=== PATIENT | male | born 1950 | race Caucasian/White ===

== ENCOUNTER 2024-01-01 14:08 | Emergency (ER) | payer MEDICARE, OTHER ==
[2024-01-01 15:05] VITALS: RESP 18; TEMP 98.1
--- NOTE | 2024-01-01 15:08 | ED ---
Recheck HPI - General Source: patient, family, RN notes reviewed Mode of arrival: ambulatory Limitations: no limitations <Alma Rosa Lema - Last Filed: 01/01/24 15:07> <Faiza Hardy - Last Filed: 01/09/24 07:01> - General Chief Complaint: Recheck/Abnormal Lab/Rx Stated Complaint: Abn labs-sent by PCP Time Seen by Provider: 01/01/24 15:07 - History of Present Illness Initial Comments: Quick note: 73-year-old male presented to the ER with a chief complaint of abnormal labs. Patient reports on Thursday she had a syncopal episode and hit his head. Patient was seen in the ER and had a full workup which was negative. Patient states he followed up with his primary care physician who ordered an MRI to be thorough. MRI was completed today and was found to have an odontoid abnormality. PCP sent patient in for further evaluation. Patient does complain that he has been feeling a popping sensation in his neck. (Alma Rosa Lema) 73-year-old male presents emergency department with abnormal MRI. Patient had a passing out episode on Thursday. He followed up with his primary care doctor who ordered an MRI. MRI was completed today in the outpatient setting. He was found to have an abnormality and was sent to the hospital. Patient does have a popping sensation in his neck however this is chronic. States that he has a chiropractor works on his neck. He denies any worsening neck pain. No numbness, tingling or weakness in his extremities. No other alleviating, precipitating or modifying factors (Faiza Hardy) - Related Data Allergies Allergy/AdvReac Type Severity Reaction Status Date / Time No Known Allergies Allergy Verified 01/01/24 14:23 Review of Systems ROS Other: All systems not noted in ROS Statement are negative. <Alma Rosa Lema - Last Filed: 01/01/24 15:07> ROS Other: All systems not noted in ROS Statement are negative. <Faiza Hardy - Last Filed: 01/09/24 07:01> ROS Statement: Those systems with pertinent positive or pertinent negative responses have been documented in the HPI. Past Medical History Smoking Status: Never smoker Past Alcohol Use History: None Reported Past Drug Use History: None Reported <Alma Rosa Lema - Last Filed: 01/01/24 15:07> General Exam Limitations: no limitations <Alma Rosa Lema - Last Filed: 01/01/24 15:07> General appearance: alert, in no apparent distress Head exam: Present: atraumatic, normocephalic, normal inspection Eye exam: Present: normal appearance, PERRL, EOMI. Absent: scleral icterus, conjunctival injection, periorbital swelling ENT exam: Present: normal exam, mucous membranes moist Neck exam: Present: normal inspection. Absent: tenderness, meningismus, lymphadenopathy Respiratory exam: Present: normal lung sounds bilaterally. Absent: respiratory distress, wheezes, rales, rhonchi, stridor Cardiovascular Exam: Present: regular rate, normal rhythm, normal heart sounds. Absent: systolic murmur, diastolic murmur, rubs, gallop, clicks GI/Abdominal exam: Present: soft, normal bowel sounds. Absent: distended, tenderness, guarding, rebound, rigid Extremities exam: Present: normal inspection, full ROM, normal capillary refill. Absent: tenderness, pedal edema, joint swelling, calf tenderness Back exam: Present: normal inspection Neurological exam: Present: alert, oriented X3, CN II-XII intact Psychiatric exam: Present: normal affect, normal mood Skin exam: Present: warm, dry, intact, normal color. Absent: rash <Faiza Hardy - Last Filed: 01/09/24 07:01> - General Exam Comments Initial Comments: Visual Physical Exam Vital signs reviewed General: Well-appearing, nontoxic, no acute distress. Head: Normocephalic, atraumatic Eyes: PERRLA, EOMI ENT: Airway patent Chest: Nonlabored breathing Skin: No visual rash, normal skin tone, contusion under left eye Neuro: Alert and oriented 3 Musculoskeletal: No gross abnormalities (Alma Rosa Lema) Course Vital Signs 01/01/24 01/01/24 14:20 17:44 Temperature 98.1 F Pulse Rate 73 64 Respiratory 18 18 Rate Blood Pressure 123/72 126/74 O2 Sat by Pulse 98 98 Oximetry Medical Decision Making <Alma Rosa Lema - Last Filed: 01/01/24 15:07> <Faiza Hardy - Last Filed: 01/09/24 07:01> - Medical Decision Making I performed the quick note portion of this chart. Electronically signed by Alma Rosa Lema PA-C (Alma Rosa Lema) Was pt. sent in by a medical professional or institution ([facility], [employer], urgent care, hospital, or detention...) When possible be specific @ -Patient was sent in from outpatient MRI for an abnormal lab Did you speak to anyone other than the patient for history (EMS, parent, family, police, friend...)? What history was obtained from this source @ -I talked to his for history Did you review nursing and triage notes (agree or disagree)? Why? @ -I reviewed and agree with nursing and triage notes Were old charts reviewed (outside hosp., previous admission, EMS record, old EKG, old radiological studies, urgent care reports/EKG's, detention records)? Report findings @ -I reviewed the MRI that was performed today on the patient Differential Diagnosis (chest pain, altered mental status, abdominal pain women, abdominal pain men, vaginal bleeding, weakness, fever, dyspnea, syncope, headache, dizziness, GI bleed, back pain, seizure, CVA, palpatations, mental health, musculoskeletal)? @ -Differential Back Pain: Strain, zoster, cauda equina syndrome, epidural abscess, vertebral osteomyelitis, discitis, fracture, subluxation, disc herniation, DJD, spinal stenosis, dissection, AAA, pancreatitis, peptic ulcer disease, pyelonephritis, kidney stone, this is not meant to be an all-inclusive list. EKG interpreted by me (3pts min.). @ -Not done X-rays interpreted by me (1pt min.). @ -Yes and demonstrates no fracture CT interpreted by me (1pt min.). @ -None done U/S interpreted by me (1pt. min.). @ -None done What testing was considered but not performed or refused? (CT, X-rays, U/S, labs)? Why? @ -None What meds were considered but not given or refused? Why? @ -None Did you discuss the management of the patient with other professionals (professionals i.e. L[facility] Werner, [employer], lab, RT, psych nurse, social services assistant, systems analyst, teacher, public information officer, case supervisor)? Give summary @ -No Was smoking cessation discussed for >3mins.? @ -No Was critical care preformed (if so, how long)? @ -No Were there social determinants of health that impacted care today? How? (Homele ssness, low income, unemployed, alcoholism, drug addiction, transportation, low edu. Level, literacy, decrease access to med. care, half-way, rehab)? @ -No Was there de-escalation of care discussed even if they declined (Discuss DNR or withdrawal of care, Hospice)? DNR status @ -No What co-morbidities impacted this encounter? (DM, HTN, Smoking, COPD, CAD, Cancer, CVA, ARF, Chemo, Hep., AIDS, mental health diagnosis, sleep apnea, morbid obesity)? @ -None Was patient admitted / discharged? Hospital course, mention meds given and route, prescriptions, significant lab abnormalities, going to OR and other pertinent info. @ -Upon arrival patient seen and evaluated in room 29. Thorough history and physical exam was performed. X-rays were completed which demonstrate no fracture. This is discussed with the patient. Patient will be discharged home. Instructed to follow-up with his primary care doctor for further workup of his passing out episode. Undiagnosed new problem with uncertain prognosis? @ -No Drug Therapy requiring intensive monitoring for toxicity (Heparin, Nitro, Insulin, Cardizem)? @ -No Were any procedures done? @ -No Diagnosis/symptom? @ -Acute syncope, chronic neck pain, evaluation for dens fracture Acute, or Chronic, or Acute on Chronic? @ -Acute Uncomplicated (without systemic symptoms) or Complicated (systemic symptoms)? @ -complicated Side effects of treatment? @ -No Exacerbation, Progression, or Severe Exacerbation? @ -No Poses a threat to life or bodily function? How? (Chest pain, USA, MS, pneumonia, PE, COPD, DKA, ARF, appy, cholecystitis, CVA, Diverticulitis, Homicidal, Suicidal, threat to staff... and all critical care pts) @ -No (Faiza Hardy) Disposition <Alma Rosa Lema - Last Filed: 01/01/24 15:07> Is patient prescribed a controlled substance at d/c from ED?: No Time of Disposition: 17:33 <Faiza Hardy - Last Filed: 01/09/24 07:01> Clinical Impression: Abnormal MRI Disposition: HOME SELF-CARE Condition: Stable Instructions (If sedation given, give patient instructions): Normal Exam (ED) Additional Instructions: Please follow-up with Dr. Crespo. I recommend echo of your heart, carotid Dopplers and a Holter monitor. Return for any new or worsening symptoms Please follow-up with the recommended M doctors for any type of manipulation Have a repeat MRI of your cervical spine completed in 6 months to reevaluate that area of abnormality that they had seen today Referrals: Della Crespo MD [Primary Care Provider] - 1-2 days Tejas Rice DO [REFERRING] - 1-2 days Monika Lucero DO [REFERRING] - 1-2 days Alona Licona DO [REFERRING] - 1-2 days
--- NOTE | 2024-01-01 16:19 | XR ---
EXAMINATION TYPE: XR cervical spine 5 views comp DATE OF EXAM: 01/01/2024 COMPARISON: None HISTORY: 73-year-old male abnormal MRI, odontoid FINDINGS: Degenerative view shows no discrete dens fracture. No predental space widening or prevertebral soft t issue swelling. Suspect some interbody ankylosis across C2-C3. Moderate to severe dissection plate de generative change C5-T1 levels with loss of disc height and prominent anterior endplate spondylosis. Reversal of the normal cervical lordosis. Multilevel hypertrophic facet and uncovertebral joint arthr opathy. On the left, changes result in moderate to severe bony neural foraminal narrowing at C3-C4 and mild a t C6-C7. On the right, changes result in moderate bony neuroforaminal narrowing at C3-C4 and severe a t C4-C5. Alignment is maintained. IMPRESSION: 1. The odontoid view shows no dense fracture. MRI finding may correspond to sequela of old trauma or previous gouty tophus or old rheumatoid pannus. Clinically correlate. If indicated, consider a six-mo nth follow-up MRI cervical spine to reassess this area. 2. Moderate to advanced spondylotic change especially mid to low cervical spine. Reversal of normal c ervical lordosis could be positional or due to muscle spasm.
[2024-01-01 18:15] VITALS: BP 126/74; PULSE 64
== END 2024-01-01 17:46 | disposition home or self-care (01) ==
LOC: EC 14:08
DX: R93.89 Abnormal findings on diagnostic imaging of other specified body structures (principal); R55 Syncope and collapse; G89.29 Other chronic pain; M54.2 Cervicalgia
CPT/HCPCS: 72050; 99283

== ENCOUNTER → 2024-01-01 | Outpatient (CLI) | payer MEDICARE, OTHER ==
--- NOTE | 2024-01-01 10:22 | MR ---
EXAMINATION TYPE: MR brain wo/w con DATE OF EXAM: 01/01/2024 COMPARISON: None HISTORY: Fall, head injury, syncope. TECHNIQUE: Multiplanar, multisequence images of the brain and brainstem is performed without and with IV contras t, utilizing 10 mL intravenous Gadavist . FINDINGS: Diffusion weighted images demonstrate no evidence of a recent infarct or other diffusion ab normality. Small foci of abnormal signal involving the basal ganglia may represent prominent Virchow-Poli space or tiny remote lacunar infarct. There is mild generalized degenerative change. No midline shift or mass effect. Midline structures demonstrate normal morphology. The craniocervical junction appears within normal limits. Post contrast images demonstrate no abnormal enhancement. The dural venous sinuses appear pa tent. Changes of chronic sinusitis and the globes are intact. 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 Recommend x-ray correlation and clinical correlation. IMPRESSION: 1. Mild degenerative change. 2. Chronic sinusitis. 3. 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 A Yellow level critical message alert has been initiated for Della Crespo MD via the [employer] Critical Results System on 01/01/2024 10:19 AM. This message alert has been sent to Della Crespo MD via the preferences provided by the clinician for the receipt of Radiology Critical Findings. [place] ID [id number].
== END | disposition home or self-care (01) ==
LOC: RADMRIMAIN 09:21
PROVIDERS: ATTEND Internal Medicine
DX: J32.9 Chronic sinusitis, unspecified (principal); Q04.9 Congenital malformation of brain, unspecified; R55 Syncope and collapse
CPT/HCPCS: 70553; A9585

== ENCOUNTER → 2024-02-16 | Outpatient (CLI) | payer MEDICARE, OTHER ==
[2024-02-16 15:55] LABS: HGB 14.7 g/dL (13.0-17.0); MCH 28.7 pg (27.0-32.0); MCHC 32.7 g/dL (32.0-37.0); MCV 87.7 FL (80.0-97.0); NRBC Per 100 WBC 0 X 10*3/uL (0.00-0.01); Platelet Count 188 X 10*3/uL (140-440); RBC 5.13 X 10*6/uL (4.40-5.60); RDW 13.2 % (11.5-14.5); WBC 4.85 X 10*3/uL (4.50-10.00)
[2024-02-16 16:45] LABS: Blood Urea Nitrogen 16.1 mg/dL (9.0-27.0); Carbon Dioxide 25.7 mmol/L (21.6-31.8); Chloride 105 mmol/L (96-109); Potassium 4.7 mmol/L (3.5-5.5); Sodium 143 mmol/L (135-145)
== END | disposition home or self-care (01) ==
LOC: LABPAT 11:19
PROVIDERS: ATTEND Internal Medicine Interventional Cardiology
DX: Z01.812 Encounter for preprocedural laboratory examination (principal); R94.39 Abnormal result of other cardiovascular function study
CPT/HCPCS: 36415; 80051; 82565; 84520; 85027

== ENCOUNTER 2024-02-23 06:07 | Day surgery (SDC) | payer MEDICARE, OTHER ==
[~2024-02-23 06:07] MED LIST: ALPRAZolam 0.25 MG TAB PO PRN; ALPRAZolam 0.5 MG TAB PO PRN; ASPIRIN 325 MG TAB PO STA; NITROGLYCERIN SL TABS 0.4 MG TAB SUBLINGUAL PRN
[2024-02-23 06:35] VITALS: RESP 18; TEMP 97.9
[2024-02-23] MEDS: SODIUM CHLORIDE 0.9% 1,000 ML in EMPTY BAG 1 BAG IV SCH (06:35)
[2024-02-23] MEDS: IV FLUID CONTINUATION 1,000 ML IV ONE (06:36)
[2024-02-23] MEDS ORDERED: VERAPAMIL 2.5 MG/ML 2 ML AMP ONE (07:14)
[2024-02-23] MEDS ORDERED: LIDOCAINE 1% INJ 10MG/ML (20 ML MDV) ONE (07:14)
[2024-02-23] MEDS ORDERED: fentaNYL (PF) 50 MCG/ML 2 ML AMP ONE (07:29)
[2024-02-23] MEDS ORDERED: HEPARIN SODIUM 1,000 UN/ML (10ML VL) ONE (07:29)
[2024-02-23] MEDS: LIDOCAINE 1% INJ 10MG/ML (20 ML MDV) SQ ONE (07:56)
[2024-02-23] MEDS: VERAPAMIL SYRINGE (5 MG/10 ML) INTRAARTER ONE (07:58)
[2024-02-23] MEDS: fentaNYL (PF) 50 MCG/ML 2 ML AMP IVP ONE (07:58)
[2024-02-23] MEDS: MIDAZOLAM 2 MG/2 ML VIAL IVP ONE (07:59)
[2024-02-23] MEDS: HEPARIN SODIUM 1,000 UN/ML (10ML VL) IVP ONE (08:03)
[2024-02-23] MEDS: IOPAMIDOL-370 100ML BTL INJ ONE (08:12)
[2024-02-23] MEDS: HEPARIN SODIUM,PORCINE 10,000 UNIT in SODIUM CHLORIDE 0.9% 1,000 ML IRRIGATION PRN (08:12)
[2024-02-23] MEDS: HEPARIN SODIUM,PORCINE (1 ML) 2,500 UNIT in SODIUM CHLORIDE 0.9% 250 ML IRRIGATION PRN (08:13)
[2024-02-23] MEDS ORDERED: RX INFO: IV CONTRAST WAS GIVEN 1 EACH MISC MISCELLANE PRN (08:25)
[2024-02-23] MEDS ORDERED: SODIUM CHLORIDE 0.9% 1,000 ML IV SCH (08:30)
--- NOTE | 2024-02-23 08:32 | P.CARDCATH ---
Date of Procedure: 02/23/24 Description of Procedure: Cardiac Catheterization: The patient is a 73-year-old male who had a syncopal episode and was found to have an abnormal MPI with frequent ventricular ectopic activity. Recommendations were made regarding cardiac catheterization, the risks and the complications were discussed with the patient who is in full understanding and agreement. Procedure Description: Patient was brought to carpenter/labor in fasting semi-sedated state after receiving Fentanyl and Benadryl achieiving moderate conscious sedated state. Using Xylocaine Anesthesia and modified Seldinger technique, a 6-Guyanese sheath was introduced in the right radial artery . Subsequently, selective coronary angiography was performed using a 5-Guyanese 3.5 bend Duncan catheter. Multiple views of the coronary artery including hemiaxial views were obtained. The right Duncan catheter was used to cross the aortic valve and LVEDP was calculated. Following that, catheter and sheath were removed. Hemostasis was obtained with deployment of vascular band . There was no immediate complication. Patient was returned to room in stable condition. Of note, the patient received a total of 5000 units of intravenous heparin as well as intra-arterial verapamil. Findings: Left main: This is a large size vessel, bifurcating into LAD and left circumflex, left main has no obstructive disease LAD: This is a large size vessel, reaching to the apex, giving rise to 2 large diagonal branch. After the takeoff of the first diagonal branch there is an 80% to 90% stenosis involving the LAD and the diagonal branch, the rest of the vessel has no high-grade stenosis Left circumflex: This is a large nondominant vessel giving rise to a large obtuse marginal branch that has an eccentric 95% stenosis, the rest of the vessel has no high-grade stenosis RCA: This is a large dominant vessel bifurcating distally to PDA and PLV the mid right coronary artery has a 90% eccentric lesion, the rest of the vessel has no high-grade stenosis Left Ventriculogram: Not performed Hemodynamics: There was no gradient across aortic valve, LVEDP was 16-20 mmHg Conclusion: 1. Severe triple-vessel disease 2. Right dominance 3. Mildly elevated LVEDP Recommendations: I have recommended to proceed with evaluation for possible CABG. I discussed wi th the patient both option of CABG versus multivessel stenting. We will obtain the surgical opinion and depending on the recommendations further plans will be made. The findings and the recommendations were discussed with the patient and the family and they were in full understanding and agreement. Duration of sedation is 14 minutes.
[2024-02-23] MEDS ORDERED: ASPIRIN 81 MG PO SCH (09:00)
--- NOTE | 2024-02-23 10:57 | P.GSCN ---
History of Present Illness Consult date: 02/23/24 Reason for Consult: Triple-vessel coronary artery disease Requesting physician: Eliseo Camacho History of present illness: This is a 73-year-old gentleman who follows outpatient with Dr. Crespo for primary care and Dr. Camacho for cardiology. This gentleman has been in [place] for the last 3 months and has plans to be here for another 20 months, he is here from [place] on a mission from his jainism. He has a previous medical history of hypertension, hyperlipidemia, childhood asthma, prostate cancer status post prostatectomy, Valeriano's thyroiditis, osteoarthritis status post bilateral hip replacement as well as right shoulder replacement, bilateral inguinal hernia repair, remote history of pneumonia, and lifelong non-smoker. Apparently he had a syncopal event a couple of months ago. He had a CT of the C-spine and maxillofacial CT completed at [facility], per the patient he was told there is nothing abnormal, awaiting on the reports from [facility]. He was encouraged to see Dr. Camacho who did place an event monitor which showed frequent ventricular ectopy with short bursts of nonsustained ventricular tachycardia. He also underwent stress testing which demonstrated good exercise tolerance, occasional ventricular ectopy and a brief episode of nonsustained V. tach, as well as reversible apical defect. The patient reports he has experienced no chest pain, no shortness of breath, no other symptoms consistent with coronary artery disease. He also had a transthoracic echocardiogram completed at [facility] demonstrating borderline normal left ventricular systolic function with EF 50-55%, mild left ventricular hypertrophy, mild mitral and tricuspid regurgitation. Unfortunately the aortic valve was not well-seen. Due to findings on the stress test the patient was recommended to undergo heart catheterization which was completed today by Dr. Camacho which revealed LAD and diagonal branch stenosis 80-90%, obtuse marginal branch of the left circumflex coronary artery with 95% stenosis, and mid right coronary artery stenosis 90%. Due to this finding consultation was placed to cardiothoracic surgery for surgical revascularization recommendations. Review of Systems Review of systems was completed and was negative except as noted - Cardiovascular Cardiovascular Comment(s): Ventricular ectopy but no symptoms Reports as per HPI, Reports syncope Past Medical History Past Medical History: Asthma, Coronary Artery Disease (CAD), Cancer, Hyperl ipidemia, Hypertension, Osteoarthritis (OA), Pneumonia, Supraventricular Tachycardia (SVT), Syncope, Thyroid Disorder Additional Past Medical History / Comment(s): BP up & down per pt, does check @home, told asthma as a child-no current problem, hx. prostate cancer History of Any Multi-Drug Resistant Organisms: None Reported Past Surgical History: Appendectomy, Hernia Repair, Joint Replacement, Prostate Surgery, Tonsillectomy Additional Past Surgical History / Comment(s): prostatectomy, mastoid surg. on right ear, santiago hip replacements, right shoulder replacement, cysts removed from back Past Anesthesia/Blood Transfusion Reactions: No Reported Reaction Past Psychological History: No Psychological Hx Reported Smoking Status: Never smoker Past Alcohol Use History: None Reported Past Drug Use History: None Reported - Past Family History Mother Family Medical History: No Reported History Additional Family Medical History / Comment(s): in a house fire Father Family Medical History: CVA/TIA Additional Family Medical History / Comment(s): in a house fire Medications and Allergies Home Medications Medication Instructions Recorded Confirmed Type Ascorbic Acid [Vitamin C] 1,000 mg PO DAILY 02/22/24 02/23/24 History Aspirin 81 mg PO DAILY 02/22/24 02/23/24 History Ginkgo Biloba [place] Extract [Ginkgo 120 mg PO DAILY 02/22/24 02/23/24 History Biloba] L.acidoph,Paracasei, B.lactis 1 each PO DAILY 02/22/24 02/23/24 History [Probiotic] Levothyroxine Sodium [Synthroid] 112 mcg PO Q2D 02/22/24 02/23/24 History Levothyroxine Sodium [Synthroid] 125 mcg PO Q2D 02/22/24 02/23/24 History Magnesium 200 mg PO DAILY 02/22/24 02/23/24 History [place]-3/Dha/Epa/Fish Oil [Fish Oil 1 each PO DAILY 02/22/24 02/23/24 History 1,000 mg Softgel] Rosuvastatin [Crestor] 10 mg PO HS 02/22/24 02/23/24 History Ubidecarenone [Co Q-10] 1 tab PO DAILY 02/22/24 02/23/24 History Vitamin B Complex 1 each PO DAILY 02/22/24 02/23/24 History Vitamin D3/Vitamin K2 (Mk4) 1 each PO DAILY 02/22/24 02/23/24 History [Vitamin K2 Plus D3 Tablet] Allergies Allergy/AdvReac Type Severity Reaction Status Date / Time No Known Allergies Allergy Verified 02/23/24 06:28 Surgical - Exam Vital Signs Temp Pulse Resp BP Pulse Ox 97.9 F 94 18 166/64 98 02/23/24 06:33 02/23/24 06:33 02/23/24 06:33 02/23/24 06:33 02/23/24 06:33 CONSTITUTIONAL: Awake and alert, appears comfortable, cooperative, well- developed, well-nourished, no pain, no acute distress EYES: Pupils equal, round, reactive to light, normal ocular movement ENT: Moist mucous membranes without oral lesions present NECK: No masses, no bruits, trachea midline RESPIRATORY: Lungs sounds clear to auscultation bilaterally. Respirations even, nonlabored. Currently on room air with oxygen saturation 98%. Strong cough. No chest wall deformities. No clubbing or cyanosis present CARDIOVASCULAR: S1, S2 present. Regular rate and rhythm, sinus bradycardia on telemetry. Palpable peripheral pulses bilaterally. No edema present. No calf pain or tenderness noted. No significant lower extremity varicosities noted. Left radial Carlos A's test less than 8 seconds. GASTROINTESTINAL: Abdomen soft, nontender, nondistended without masses or organomegaly noted. There is no rebound or guarding present. Active bowel sounds present 4 quadrants. GENITOURINARY: Deferred INTEGUMENTARY: Skin is warm and dry with evidence of good perfusion. NEUROLOGIC: Cranial nerves II through XII intact, normal coordination, no obvious motor or sensory deficits, speech is normal MUSKULOSKELETAL: Able to move all extremities, strength equal bilaterally, normal posture PSYCHIATRIC: Alert and oriented to person place and time, appropriate affect, intact judgment and insight CLINICAL FRAILTY SCORE 3 Results - Imaging Additional studies: Heart catheterization films reviewed Assessment and Plan Assessment: Triple-vessel coronary artery disease Episodes of nonsustained V. tach Episode of syncope 2 months ago Hypertension Hyperlipidemia Childhood asthma, currently inactive Prostate cancer status post prostatectomy Valeriano's thyroiditis Osteoarthritis status Remote history of pneumonia Lifelong non-smoker Plan: The patient was seen and examined in the Extended Stay unit with present. Chart/diagnostics were reviewed. The case will be discussed in detail with cardiothoracic surgeon. The usual perioperative course of open-heart surgery was discussed in detail with the patient and his , risks and benefits were reviewed, all questions were answered. Preoperative testing initiated, due to the patient's syncopal episode and aortic valve not well-seen on echo completed at [facility] we will get a limited echo to evaluate the aortic valve only while the patient is here. Once all testing has been completed we will calculate STS risk score and discussed with the patient. Will perform 5 m walk test. Recommend to continue aspirin, statin, initiate beta-glo if heart rate will allow. More recommendations to follow once surgery has had the opportunity to review this case. Thank you Dr. Camacho for this consult, we look forward to working with you in the care of this patient. I have personally seen and examined the patient, performed the documentation and the assessment and plan as written. Number of minutes spent on the visit: 30. ANTHONY Marquez
[2024-02-23 11:07] VITALS: PULSE 50
--- NOTE | 2024-02-23 12:41 | US ---
EXAMINATION TYPE: US vein mapping BIL DATE OF EXAM: 02/23/2024 12:28 PM COMPARISON: NONE CLINICAL INDICATION: Male, 73 years old with history of preop cardiac surgery; open heart SIDE PERFORMED: Bilateral TECHNIQUE: Lower extremity saphenous vein is examined and measured utilizing real time linear array sonography. Patient History: Smoker: no Heart Disease: no Previous DVT: no Vascular Surgery: no Discoloration: no Hypertension: no Diabetes: no Paralysis: no Varicosities: no Edema: no DUPLEX FINDINGS: Greater Saphenous: Color flow seen Lesser Saphenous: Color flow seen Measurements in mm: Right Greater Saphenous: Groin: 5.6 x 2.9 mm High Thigh: 4.6 x 4.1 mm Mid Thigh: 2.6 x 1.6 mm Above Knee: 3.0 x 2.2 mm Knee: 2.0 x 1.7 mm Below Knee: 1.5 x 1.5 mm Mid Calf: 1.4 x 1.7 mm At Ankle: 2.6 x 2.3 mm Left Greater Saphenous: Groin: 7.2 x 6.1 mm High Thigh: 3.7 x 2.2 mm Mid Thigh: 3.2 x 2.2 mm Above Knee: 1.7 x .9 mm Knee: 2.2 x 1.5 mm Below Knee: 1.8 x 1.9 mm Mid Calf: 2.7 x 1.1 mm At Ankle: 1.4 x 1.1 mm IMPRESSION: 1. Bilateral GSV measurements listed above. 2. Performing surgeon to determine viability as conduit.
--- NOTE | 2024-02-23 12:41 | US ---
EXAMINATION TYPE: Pre-Operative Non-Invasive Evaluation of the hand for Potential Radial Artery Jose wall, Measurements only DATE OF EXAM: 02/23/2024 12:27 PM CLINICAL INDICATION: Male, 73 years old with history of measurements only; open heart SIDE PERFORMED: Left TECHNIQUE: Radial artery is measured utilizing real time linear array sonography. Duplex Findings: Radial Artery: Color flow seen Measurements in mm, transverse view: Left Radial Proximal: 5.2 x 4.2 mm Mid: 3.0 x 2.3 mm Distal: 3.6 x 1.9 mm IMPRESSION: 1. Left Radial artery measurements listed above. 2. Performing surgeon to determine viability as conduit.
--- NOTE | 2024-02-23 12:43 | US ---
EXAMINATION TYPE: US carotid duplex BILAT DATE OF EXAM: 02/23/2024 COMPARISON: NONE CLINICAL INDICATION: Male, 73 years old with history of preop cardiac surgery; open heart TECHNIQUE: Carotid duplex ultrasound examination. Indirect Doppler criteria was utilized. FINDINGS: EXAM MEASUREMENTS: RIGHT: Peak Systolic Velocity (PSV) cm/sec ----- Right CCA: 68.2 ----- Right ICA: 79.8 ----- Right ECA: 101.6 ICA/CCA ratio: 1.2 RIGHT: End Diastole cm/sec ----- Right CCA: 17.3 ----- Right ICA: 17.3 ----- Right ECA: 12.9 LEFT: Peak Systolic Velocity (PSV) cm/sec ----- Left CCA: 75.8 ----- Left ICA: 93.5 ----- Left ECA: 75.8 ICA/CCA ratio: 1.2 LEFT: End Diastole cm/sec ----- Left CCA: 19.2 ----- Left ICA: 33.8 ----- Left ECA: 11.1 VERTEBRALS (direction of flow): Right Vertebral: Antegrade Left Vertebral: Antegrade Rhythm: Normal RECREATION LEADER NOTES: Mild atherosclerotic plaque. No significant stenosis seen IMPRESSION: No significant stenosis identified. Criteria for Assigning % of Stenosis / Diameter reduction (Estimation based on the indirect measurements of the internal carotid artery velocities (ICA PSV). 1. Normal (no stenosis)=ICA PSV < 125 cm/s: ratio < 2.0: ICA EDV<40 cm/s. 2. Less than 50% stenosis=ICA PSV < 125 cm/s: ratio < 2.0: ICA EDV<40 cm/s. 3. 50 to 69% stenosis=ICA PSV of 125 to 230 cm/s: ration 2.0 ? 4.0: ICA EDV 40-100 cm/s. 4. Greater than 70% stenosis to near occlusion= ICA PSV > 230 cm/s: ratio > 4.0: ICA EDV > 100 cm/s. 5. Near occlusion= ICA PSV velocities may be low or undetectable: variable ratio and ICA EDV. 6. Total occlusion=unable to detect flow.
[2024-02-23 13:41] VITALS: BP 150/79
--- NOTE | 2024-02-23 17:36 | CA ---
Transthoracic Echo Report Name: Bhupinder Thompson Age: 73 Gender: M : 1950 Exam Date: 02/23/2024 10:57 Exam Location: [facility] Ht (in): 75 Wt (lb): 218 Ordering Physician: Angeli Wan Attending/Referring Phys: Retail Maintenance Technician Lisa Dick RDCS Procedure CPT: Indications: Assess aortic valve Cardiac Hx: Technical Quality: Good Contrast 1: Total Dose (mL): Contrast 2: Total Dose (mL): MEASUREMENTS (Male / Female) Normal Values 2D ECHO LVOT Diameter 2.5 cm LV Diastolic Volume MOD 4C 101.8 cm??? LV Systolic Volume MOD 4C 45.0 cm??? LV Ejection Fraction MOD 4C 55.8 % LV Cardiac Index MOD 4C 1334.5 cm???/min???m??? LV Diastolic Length 4C 9.4 cm LV Systolic Length 4C 7.7 cm LV Diastolic Volume MOD 2C 159.9 cm??? LV Systolic Volume MOD 2C 67.1 cm??? LV Ejection Fraction MOD 2C 58.1 % LV Cardiac Index MOD 2C 2179.9 cm???/min???m??? LV Diastolic Length 2C 10.2 cm LV Systolic Length 2C 8.3 cm M-MODE Aortic Root Diameter MM 3.4 cm AV Cusp Separation MM 2.4 cm DOPPLER AV Peak Velocity 144.8 cm/s AV Peak Gradient 8.4 mmHg AV Mean Velocity 96.7 cm/s AV Mean Gradient 4.1 mmHg AV Velocity Time Integral 33.5 cm AI Peak Velocity 218.5 cm/s AI Peak Gradient 19.1 mmHg AI Pressure Half Time 1198.6 ms LVOT Peak Velocity 105.4 cm/s LVOT Peak Gradient 4.4 mmHg LVOT Velocity Time Integral 23.7 cm LVOT Stroke Volume 119.9 cm??? LVOT Stroke Volume Index 52.7 ml/m??? LVOT Cardiac Index 2815.3 cm???/min???m??? AV Area Cont Eq vti 3.6 cm??? AV Area Cont Eq pk 3.7 cm??? TR Peak Velocity 251.3 cm/s TR Peak Gradient 25.3 mmHg Right Ventricular Systolic Press 30.3 mmHg FINDINGS Left Ventricle Left ventricular ejection fraction is estimated at 60-65 %. No obvious regional wall motion abnormalities. Right Ventricle Normal right ventricular size and function. Right Atrium Normal right atrial size. Left Atrium No spontaneous echo contrast seen in the left atrium. Mitral Valve Structurally normal mitral valve. No mitral stenosis, regurgitation or prolapse. Aortic Valve Trileaflet aortic valve. Thickened aortic valve without stenosis. Mild aortic regurgitation. Tricuspid Valve Structurally normal tricuspid valve. Mild tricuspid regurgitation. Pulmonic Valve Structurally normal pulmonic valve. Pericardium No pericardial effusion. No pleural effusion. Aorta Normal size aortic root and proximal ascending aorta. CONCLUSIONS Normal LV function Mild aortic regurgitation Previewed by: Dr. Rajeev Dietz MD (Electronically Signed) Final Date: 23 February 2024 17:35
[2024-02-23] MEDS ORDERED: ATORVASTATIN 20 MG TAB PO SCH (21:00)
[2024-02-24] MEDS ORDERED: LEVOTHYROXINE 125 MCG TAB PO SCH (06:30)
[2024-02-25] MEDS ORDERED: LEVOTHYROXINE 112 MCG TAB PO SCH (06:30)
== END 2024-02-23 13:41 | disposition home or self-care (01) ==
LOC: CATHCVL 06:07
PROVIDERS: ATTEND Internal Medicine Interventional Cardiology
DX: I25.10 Atherosclerotic heart disease of native coronary artery without angina pectoris (principal); E78.5 Hyperlipidemia, unspecified; E03.9 Hypothyroidism, unspecified; I10 Essential (primary) hypertension; I47.20 Ventricular tachycardia, unspecified; I49.3 Ventricular premature depolarization; J45.909 Unspecified asthma, uncomplicated; M19.011 Primary osteoarthritis, right shoulder; Z85.46 Personal history of malignant neoplasm of prostate; Z87.01 Personal history of pneumonia (recurrent); Z90.49 Acquired absence of other specified parts of digestive tract; Z90.79 Acquired absence of other genital organ(s); Z79.890 Hormone replacement therapy; Z79.899 Other long term (current) drug therapy; Z87.891 Personal history of nicotine dependence; Z79.82 Long term (current) use of aspirin
CPT/HCPCS: 94150; 93308; 93458; 87070; 93931; 93970; 93880; C1769 ×2; C1894; J2250; J1644 ×3; J2001; J3010; Q9967

== ENCOUNTER → 2024-03-01 | Outpatient (CLI) | payer MEDICARE, OTHER ==
[2024-03-01 10:09] LABS: Prothrombin Time 10.8 sec (10.0-12.5)
--- NOTE | 2024-03-01 12:43 | XR ---
EXAMINATION TYPE: XR chest 2V DATE OF EXAM: 03/01/2024 11:44 AM CLINICAL INDICATION:Male, 73 years old with history of TAVR planning; [facility] COMPARISON: Chest radiographs from 03/01/2024 TECHNIQUE: XR chest 2V Frontal view of the chest. FINDINGS: Lungs/Pleura: There is flattening of the diaphragm with increased lucency of the lungs. No evidence o f pneumothorax, pleural effusion or focal consolidation. Pulmonary vascularity: Unremarkable. Heart/mediastinum: Cardiomediastinal silhouette is unremarkable. Musculoskeletal: No acute osseous pathology. IMPRESSION: 1. No acute cardiopulmonary disease process. 2. COPD changes.
[2024-03-01 15:54] LABS: HCT 45.3 % (39.6-50.0); HGB 14.9 g/dL (13.0-17.0); MCH 28.8 pg (27.0-32.0); MCHC 32.9 g/dL (32.0-37.0); MCV 87.6 FL (80.0-97.0); Mean Platelet Volume 9.5 FL (9.5-12.2); NRBC Per 100 WBC 0 X 10*3/uL (0.00-0.01); Platelet Count 174 X 10*3/uL (140-440); RBC 5.17 X 10*6/uL (4.40-5.60); RDW 13.1 % (11.5-14.5); WBC 6.81 X 10*3/uL (4.50-10.00)
[2024-03-01 16:17] LABS: Hepatitis A Antibody IgM Nonreactive (Nonreactive); Hepatitis B Core IgM Nonreactive (Nonreactive); Hepatitis B Surface Antigen Nonreactive (Nonreactive); Hepatitis C IgG Antibody Nonreactive (Nonreactive)
[2024-03-01 16:20] LABS: Chol/HDL Ratio 2.92 Ratio; Magnesium 2.3 mg/dL (1.5-2.4); VLDL Calculation 14.92 mg/dL (5.00-40.00)
[2024-03-01 16:21] LABS: ALT 31 U/L (10-49); AST 24 U/L (14-35); Albumin 4.8 g/dL (3.8-4.9); Albumin/Globulin Ratio 2.09 Ratio (1.60-3.17); Alkaline Phosphatase 124 U/L (41-126); Blood Urea Nitrogen 13.5 mg/dL (9.0-27.0); Calcium 9.3 mg/dL (8.7-10.3); Carbon Dioxide 27.2 mmol/L (21.6-31.8); Chloride 101 mmol/L (96-109); Globulin 2.3 g/dL (1.6-3.3); Glucose 88 mg/dL (70-110); LDL Cholesterol,Calculated 79.2 mg/dL (0.0-131.0); Potassium 4.4 mmol/L (3.5-5.5); Sodium 139 mmol/L (135-145); Total Bilirubin 0.4 mg/dL (0.3-1.2); Total Protein 7.1 g/dL (6.2-8.2)
[2024-03-01 16:48] LABS: Appearance,Urine Clear (Clear); Bilirubin,Urine Negative (Negative); Blood,Urine Negative (Negative); Color,Urine Yellow (Yellow); Ketones,Urine Negative (Negative); Nitrite,Urine Negative (Negative); Specific Gravity,Urine 1.004 (1.001-1.030); Urobilinogen,Urine 0.2 E.U./DL
--- NOTE | 2024-03-02 12:31 | CT ---
EXAMINATION TYPE: CT chest wo con CT DLP: 508.7 mGycm, Automated exposure control for dose reduction was used. DATE OF EXAM: 03/01/2024 12:14 PM COMPARISON: Chest radiograph from same day. Multiple CTs of the chest with most recent on . CLINICAL INDICATION:Male, 73 years old with history of TAVR; [facility], pre op open heart TECHNIQUE: Multiple axial images were obtained through the chest. Sagittal and coronal reformats were created for review. Contrast used: mL of (None if empty) Oral contrast used: (None if empty) FINDINGS: LUNGS/ PLEURA: The lung parenchyma appears unremarkable. AIRWAY: Patent and unremarkable. HEART: Size within normal limits. Moderate amount of dense calcific coronary artery disease. MEDIASTINUM: No gross evidence of adenopathy. VASCULATURE: No aortic aneurysm. MUSCULOSKELETAL: No acute osseous abnormalities SOFT TISSUES/LYMPH NODES: Unremarkable. LOWER NECK: No significant findings. UPPER ABDOMEN: No significant findings. IMPRESSION: No acute process detected. Moderately dense calcific coronary artery disease.
== END | disposition home or self-care (01) ==
LOC: LABWHC1 09:22
PROVIDERS: ATTEND Thoracic Surgery (Cardiothoracic Vascular Surgery)
DX: Z01.818 Encounter for other preprocedural examination (principal); I25.10 Atherosclerotic heart disease of native coronary artery without angina pectoris; J44.9 Chronic obstructive pulmonary disease, unspecified; Z95.2 Presence of prosthetic heart valve
CPT/HCPCS: 36415; 71046; 71250; 80053; 80061; 80074; 81003; 83036; 83735; 84443; 85027; 85610; 85730; 86850; 86900; 86901; 86920; 87086

== ENCOUNTER 2024-03-07 05:38 | Inpatient (IN) | payer MEDICARE, OTHER ==
[~2024-03-07 05:38] MED LIST changes: +ALBUMIN HUMAN 25% 50 ML IV ONE; +ALBUMIN HUMAN 5% 500 ML IVPB ONE; -ALPRAZolam 0.25 MG TAB PO PRN; -ALPRAZolam 0.5 MG TAB PO PRN; +ASPIRIN 325 MG TAB PO ONE; -ASPIRIN 325 MG TAB PO STA; +CALCIUM CHLORIDE 100 MG/ML 10 ML SYRINGE IV ONE; +CARDIOPLEGIC SOLN (K+ 16 MEQ/L 1,000 ML with SODIUM BICARB (1 MEQ/ML) 20 ML, LIDOCAINE ... PERFUSION ONE; +CHLORHEXIDINE GLUCONATE 15 ML CUP MUCOUS MEM ONE; +CLEVIDIPINE BUTYRATE 25 MG in EMPTY BAG 1 BAG IV ONE; +DILTIAZEM 125 MG in SODIUM CHLORIDE 0.9% 100 ML IV ONE; +HEPARIN SODIUM 1,000 UN/ML (10ML VL) IV ONE; +HEPARIN SODIUM,PORCINE (1 ML) 5,000 UNIT in SODIUM CHLORIDE 0.9% 500 ML 500 ML IV ONE; +INSULIN REGULAR 100 UNIT in SODIUM CHLORIDE 0.9% 100 ML IV ONE; +LACTATED RINGERS 1,000 ML IV ONE; +MAGNESIUM SULFATE 16.24 MEQ in EMPTY SYRINGE 1 SYR IV ONE; +MANNITOL 25% 12.5 GM/50 ML VIAL IV ONE; +NITROGLYCERIN SL TABS 0.4 MG TAB SUBLINGUAL ONE; -NITROGLYCERIN SL TABS 0.4 MG TAB SUBLINGUAL PRN; +NITROGLYCERIN-D5W PMX 25 MG/250 ML BTL IV ONE; +NITROGLYCERIN-D5W PMX 50 MG in DEXTROSE/WATER 1 250ML.BAG IV ONE; +NOREPINEPHRINE 4 MG in SODIUM CHLORIDE 0.9% 250 ML IV ONE; +PAPAVERINE 360 MG in SODIUM CHLORIDE 0.9% 90 ML IV ONE; +PHENYLEPHRINE 10 MG/ML VIAL IV ONE; +PHENYLEPHRINE 40 MG in SODIUM CHLORIDE 0.9% 250 ML IV ONE; +PROTAMINE SULFATE 10 MG/ML 25 ML VIAL IV ONE; +PROTAMINE SULFATE 250 MG in EMPTY BAG 1 BAG IV ONE; +SODIUM BICARB 8.4% 50 ML SYR (1 MEQ/ML) IV ONE; +SODIUM CHLORIDE 0.9% 1,000 ML IV ONE; +TRANEXAMIC ACID 2,000 MG in SODIUM CHLORIDE 0.9% 80 ML IV ONE; +ceFAZolin 1,000 MG in SODIUM CHLORIDE 0.9% IRRIGATIO 1,000 ML IRRIGATION ONE; +propofoL 1,000 MG/100 ML VIAL IV ONE
[2024-03-07] MEDS: IV FLUID CONTINUATION 1,000 ML IV ONE (05:55)
[2024-03-07 06:15] VITALS: BP 124/78; PULSE 56; RESP 20; TEMP 96.6
[2024-03-07] MEDS: METOPROLOL TARTRATE 12.5 MG TAB PO ONE (06:29)
[2024-03-07] MEDS: ATORVASTATIN 10 MG TAB PO ONE (06:29)
[2024-03-07] MEDS: MUPIROCIN 2% OINT 22 GM TUBE NASAL ONE (06:30)
[2024-03-07] MEDS ORDERED: VECURONIUM 10 MG VIAL IV ONE (07:47)
[2024-03-07] MEDS ORDERED: MIDAZOLAM HCL 10 MG/10 ML VIAL ONE (07:47)
[2024-03-07] MEDS ORDERED: PHENYLEPHRINE 10 MG/ML VIAL ONE (07:47)
[2024-03-07] MEDS ORDERED: fentaNYL (PF) 50 MCG/ML 50 ML VIAL ONE (07:47)
[2024-03-07] MEDS ORDERED: ALBUMIN HUMAN 5% (25gm) 500 ML VIAL IVPB ONE (07:47)
[2024-03-07] MEDS ORDERED: ePHEDrine 50 MG/ML 1 ML VIAL ONE (07:47)
[2024-03-07] MEDS ORDERED: PROTAMINE SULFATE 10 MG/ML 25 ML VIAL IV ONE (07:47)
[2024-03-07] MEDS ORDERED: HEPARIN SODIUM,PORCINE 10,000 UNIT/ML 1 ML VIAL ONE (07:47)
[2024-03-07] MEDS ORDERED: PROPOFOL 10 MG/ML 20 ML VIAL IV ONE (07:47)
[2024-03-07] MEDS ORDERED: MIDAZOLAM (PF) 5 MG/ML 2 ML VIAL ONE (08:04)
[2024-03-07] MEDS ORDERED: LACTATED RINGERS 1,000 ML BAG ONE ×2 (08:04)
[2024-03-07] MEDS ORDERED: ceFAZolin 10 GM VIAL IVPB ONE (08:04)
[2024-03-07] MEDS ORDERED: fentaNYL (PF) 50 MCG/ML 2 ML AMP ONE (08:04)
[2024-03-07] MEDS ORDERED: NITROGLYCERIN-D5W PMX 50 MG/250 ML BOTTLE IV ONE (08:04)
[2024-03-07] MEDS ORDERED: SODIUM CHLORIDE 0.9% 50 ML BAG IV ONE (08:04)
[2024-03-07] MEDS ORDERED: PAPAVERINE 30 MG/ML 2 ML VIAL ONE (10:47)
[2024-03-07] MEDS ORDERED: SODIUM CHLORIDE 0.9% 1,000 ML BAG ONE (10:47)
[2024-03-07] MEDS ORDERED: SODIUM CHLORIDE 0.9% 250 ML BAG ONE (10:47)
[2024-03-07] MEDS ORDERED: HEPARIN SODIUM,PORCINE 5,000 UNIT/ML 1 ML VIAL ONE (10:47)
[2024-03-07] MEDS ORDERED: AMIODARONE 50 MG/ML 9 ML VIAL IV ONE (10:47)
[2024-03-07] MEDS ORDERED: ceFAZolin 1,000 MG VIAL ONE (10:47)
[2024-03-07 13:51] LABS: Glucose,Whole Blood 110 mg/dL (70-110)
[2024-03-07 15:06] LABS: Glucose,Whole Blood 142 mg/dL (70-110)
[2024-03-07] MEDS ORDERED: ACETAMINOPHEN IV (For NPO) 100 ML ONE (16:05)
[2024-03-07 16:18] LABS: Glucose,Whole Blood 134 mg/dL (70-110)
[2024-03-07 17:00] LABS: Glucose,Whole Blood 134 mg/dL (70-110)
[2024-03-07] MEDS ORDERED: ALBUMIN HUMAN 5% 250 ML IVPB ONE ×6 (17:22→21:42)
[2024-03-07 17:58] LABS: Glucose,Whole Blood 146 mg/dL (70-110)
[2024-03-07 19:03] LABS: Glucose,Whole Blood 137 mg/dL (70-110)
[2024-03-07] MEDS ORDERED: IPRATROPIUM-ALBUTEROL 3 ML NEB ONE ×2 (19:46)
[2024-03-07 20:04] LABS: Glucose,Whole Blood 153 mg/dL (70-110)
[2024-03-07 20:58] LABS: Glucose,Whole Blood 135 mg/dL (70-110)
[2024-03-07] MEDS ORDERED: METOPROLOL TARTRATE 12.5 MG TAB ONE (21:41)
[2024-03-07 22:04] LABS: Glucose,Whole Blood 145 mg/dL (70-110)
[2024-03-07 23:20] LABS: Glucose,Whole Blood 146 mg/dL (70-110)
[2024-03-08 00:21] LABS: Glucose,Whole Blood 140 mg/dL (70-110)
[2024-03-08 01:25] LABS: Glucose,Whole Blood 150 mg/dL (70-110)
[2024-03-08 02:28] LABS: Glucose,Whole Blood 136 mg/dL (70-110)
[2024-03-08 03:21] LABS: Glucose,Whole Blood 130 mg/dL (70-110)
[2024-03-08 04:17] LABS: Glucose,Whole Blood 130 mg/dL (70-110)
[2024-03-08] MEDS ORDERED: ALBUMIN HUMAN 5% 250 ML IVPB ONE ×2 (05:38)
[2024-03-08 06:20] LABS: Glucose,Whole Blood 140 mg/dL (70-110)
[2024-03-08] MEDS ORDERED: CLOPIDOGREL 75 MG TAB ONE ×2 (08:35)
[2024-03-08] MEDS ORDERED: HEPARIN SODIUM,PORCINE 5,000 UNIT/ML 1 ML VIAL ONE ×3 (08:37→21:05)
[2024-03-08] MEDS ORDERED: AMIODARONE 200 MG TAB ONE ×2 (08:37→21:05)
[2024-03-08] MEDS ORDERED: PANTOPRAZOLE 40 MG/10 ML VIAL ONE ×2 (08:37)
[2024-03-08] MEDS ORDERED: KETOROLAC 15 MG/ML 1 ML VIAL ONE ×6 (08:37→16:42)
[2024-03-08] MEDS ORDERED: METOPROLOL TARTRATE 12.5 MG TAB ONE ×4 (08:38→21:05)
[2024-03-08] MEDS ORDERED: LEVOTHYROXINE 100 MCG TAB ONE (08:41)
[2024-03-08] MEDS ORDERED: LEVOTHYROXINE 25 MCG TAB ONE (08:41)
[2024-03-08] MEDS ORDERED: oxyCODONE ER 10 MG TAB.ER.12H PO ONE ×4 (08:50→14:44)
[2024-03-08 08:51] LABS: Glucose,Whole Blood 151 mg/dL (70-110)
[2024-03-08 09:55] LABS: Glucose,Whole Blood 132 mg/dL (70-110)
[2024-03-08 11:07] LABS: Glucose,Whole Blood 100 mg/dL (70-110)
[2024-03-08 12:04] LABS: Glucose,Whole Blood 87 mg/dL (70-110)
[2024-03-08 12:54] LABS: Glucose,Whole Blood 90 mg/dL (70-110)
[2024-03-08 14:04] LABS: Glucose,Whole Blood 112 mg/dL (70-110)
[2024-03-08 14:57] LABS: Glucose,Whole Blood 145 mg/dL (70-110)
[2024-03-08 15:52] LABS: Glucose,Whole Blood 143 mg/dL (70-110)
[2024-03-08 16:55] LABS: Glucose,Whole Blood 125 mg/dL (70-110)
[2024-03-08 17:50] LABS: Glucose,Whole Blood 144 mg/dL (70-110)
[2024-03-08 18:54] LABS: Glucose,Whole Blood 132 mg/dL (70-110)
[2024-03-08] MEDS ORDERED: ALBUTEROL NEBULIZED 2.5 MG/3 ML INHALATION ONE ×2 (20:01)
[2024-03-08 20:11] LABS: Glucose,Whole Blood 144 mg/dL (70-110)
[2024-03-08 20:59] LABS: Glucose,Whole Blood 139 mg/dL (70-110)
[2024-03-08] MEDS ORDERED: ATORVASTATIN 40 MG TAB ONE (21:05)
[2024-03-08] MEDS ORDERED: DOCUSATE 100 MG CAP ONE (21:05)
[2024-03-08 22:45] LABS: Glucose,Whole Blood 130 mg/dL (70-110)
[2024-03-09] MEDS ORDERED: LEVOTHYROXINE 112 MCG TAB ONE
[2024-03-09] MEDS ORDERED: DEXTROSE 5% IN WATER 100 ML BAG IV ONE
[2024-03-09] MEDS ORDERED: ONDANSETRON 4 MG/2 ML VIAL ONE
[2024-03-09] MEDS ORDERED: AMIODARONE 50 MG/ML 9 ML VIAL IV ONE
[2024-03-09] MEDS ORDERED: KETOROLAC 15 MG/ML 1 ML VIAL ONE ×8 (00:46→18:33)
[2024-03-09 01:50] LABS: Glucose,Whole Blood 131 mg/dL (70-110)
[2024-03-09] MEDS ORDERED: METOCLOPRAMIDE 5 MG/ML 2 ML VIAL ONE ×2 (05:57)
[2024-03-09 06:09] LABS: Glucose,Whole Blood 130 mg/dL (70-110)
[2024-03-09] MEDS ORDERED: ALBUTEROL NEBULIZED 2.5 MG/3 ML INHALATION ONE ×2 (07:42)
[2024-03-09] MEDS ORDERED: CLOPIDOGREL 75 MG TAB ONE ×2 (09:27)
[2024-03-09] MEDS ORDERED: ASPIRIN 325 MG TAB ONE ×2 (09:27)
[2024-03-09] MEDS ORDERED: HEPARIN SODIUM,PORCINE 5,000 UNIT/ML 1 ML VIAL ONE ×3 (09:27→20:35)
[2024-03-09] MEDS ORDERED: FUROSEMIDE 10 MG/ML 4 ML VIAL ONE ×2 (09:27)
[2024-03-09] MEDS ORDERED: POTASSIUM CHLORIDE ER 20 MEQ TAB.ER PO ONE ×2 (09:27)
[2024-03-09] MEDS ORDERED: METOPROLOL TARTRATE 12.5 MG TAB ONE ×4 (09:28→20:35)
[2024-03-09] MEDS ORDERED: AMIODARONE 200 MG TAB ONE ×2 (09:28→20:35)
[2024-03-09] MEDS ORDERED: MAGNESIUM HYDROXIDE 2,400 MG/30 ML CUP ONE (09:50)
[2024-03-09] MEDS ORDERED: ASCORBIC ACID 500 MG TAB ONE (16:04)
[2024-03-09] MEDS ORDERED: FERROUS SULFATE 325 MG TAB PO ONE (16:04)
[2024-03-09 16:29] LABS: Glucose,Whole Blood 135 mg/dL (70-110)
[2024-03-09 20:14] LABS: Glucose,Whole Blood 142 mg/dL (70-110)
[2024-03-09] MEDS ORDERED: ATORVASTATIN 40 MG TAB ONE (20:35)
[2024-03-09] MEDS ORDERED: SENNOSIDES-DOCUSATE SODIUM 1 EACH TAB PO ONE ×2 (20:35)
[2024-03-10] MEDS ORDERED: ALBUTEROL NEBULIZED 2.5 MG/3 ML INHALATION ONE (00:01)
[2024-03-10 06:34] LABS: Glucose,Whole Blood 127 mg/dL (70-110)
[2024-03-10] MEDS ORDERED: ASCORBIC ACID 500 MG TAB ONE ×2 (09:08→17:24)
[2024-03-10] MEDS ORDERED: FERROUS SULFATE 325 MG TAB PO ONE ×2 (09:08→17:24)
[2024-03-10] MEDS ORDERED: METOPROLOL TARTRATE 12.5 MG TAB ONE ×3 (09:08→20:25)
[2024-03-10] MEDS ORDERED: ASPIRIN 81 MG ONE ×2 (09:08)
[2024-03-10] MEDS ORDERED: APIXABAN 5 MG TAB ONE ×2 (09:09→20:26)
[2024-03-10] MEDS ORDERED: AMIODARONE 200 MG TAB ONE ×2 (09:09→20:26)
[2024-03-10] MEDS ORDERED: PANTOPRAZOLE 40 MG TABLET PO ONE ×2 (09:21)
[2024-03-10] MEDS ORDERED: FUROSEMIDE 10 MG/ML 4 ML VIAL ONE ×2 (10:59)
[2024-03-10] MEDS ORDERED: amLODIPine 2.5 MG TAB ONE (15:56)
[2024-03-10] MEDS ORDERED: KETOROLAC 15 MG/ML 1 ML VIAL ONE ×3 (17:19→23:58)
[2024-03-10 20:06] LABS: Glucose,Whole Blood 122 mg/dL (70-110)
[2024-03-10] MEDS ORDERED: ATORVASTATIN 40 MG TAB ONE ×2 (20:25→20:30)
[2024-03-10] MEDS ORDERED: SENNOSIDES-DOCUSATE SODIUM 1 EACH TAB PO ONE (20:25)
[2024-03-10] MEDS ORDERED: MAGNESIUM HYDROXIDE 2,400 MG/30 ML CUP ONE (20:30)
[2024-03-10] MEDS ORDERED: METOCLOPRAMIDE 5 MG/ML 2 ML VIAL ONE (20:30)
[2024-03-10] MEDS ORDERED: LEVOTHYROXINE 112 MCG TAB ONE (20:30)
[2024-03-11] MEDS ORDERED: LEVOTHYROXINE 112 MCG TAB ONE (06:05)
[2024-03-11] MEDS ORDERED: KETOROLAC 15 MG/ML 1 ML VIAL ONE ×2 (06:05→12:10)
[2024-03-11 06:15] LABS: Glucose,Whole Blood 98 mg/dL (70-110)
[2024-03-11] MEDS ORDERED: ASCORBIC ACID 500 MG TAB ONE (07:39)
[2024-03-11] MEDS ORDERED: PANTOPRAZOLE 40 MG TABLET PO ONE (07:39)
[2024-03-11] MEDS ORDERED: ASPIRIN 81 MG ONE (07:39)
[2024-03-11] MEDS ORDERED: METOPROLOL TARTRATE 12.5 MG TAB ONE (07:39)
[2024-03-11] MEDS ORDERED: AMIODARONE 200 MG TAB ONE (07:40)
[2024-03-11] MEDS ORDERED: FERROUS SULFATE 325 MG TAB PO ONE (07:40)
[2024-03-11] MEDS ORDERED: APIXABAN 5 MG TAB ONE (07:40)
[2024-03-11] MEDS ORDERED: ALBUTEROL NEBULIZED 2.5 MG/3 ML INHALATION ONE (08:45)
[2024-03-11 11:32] LABS: Glucose,Whole Blood 107 mg/dL (70-110)
[2024-03-11] MEDS ORDERED: bisacodyL 10 MG SUPP RECTAL ONE (11:42)
[2024-03-11] MEDS ORDERED: amLODIPine 2.5 MG TAB ONE (12:10)
--- NOTE | 2024-03-25 15:51 | OP ---
OPERATIVE REPORT DATE OF SERVICE : March, PREOPERATIVE DIAGNOSIS: Coronary artery disease. POSTOPERATIVE DIAGNOSIS: Coronary artery disease. OPERATIVE PROCEDURES: Off-pump CABG x5 with SMART to LAD, left radial artery graft to obtuse marginal, sequential left radial artery graft to first and second diagonal branches, saphenous vein graft to the posterior descending coronary artery with endovascular vein harvest from the left greater saphenous vein extending from mid calf to groin and a radial harvest of the left radial artery. Also occlusion of the left atrial appendage with a 35-mm AtriCure clip. ASSISTANTS: Mr. Joesph Huston and Ms. Bhavani Hill. ANESTHESIA: General endotracheal with MIKKI. INDICATIONS: The patient is a 73-year-old male who presented with a syncopal event. He underwent a fairly extensive workup. He was found to have self-limiting runs of ventricular tachycardia. He had a positive stress and underwent cardiac catheterization demonstrating severe 3-vessel coronary artery disease with good distal targets. Elective CABG was scheduled. DESCRIPTION OF PROCEDURE: The patient was brought to the operating room, placed supine on the operating table, anesthetized and intubated. MIKKI probe was placed. Preoperative monitoring lines have been placed in the preop holding area. Anterior torso, left upper extremity, and bilateral lower extremities were sterilely prepped and draped. Left greater saphenous vein was harvested from mid calf to groin using endovascular harvest technique. Although the vein appeared good in the leg, it did not inflate well on the back table, was prepared on the back table. The left radial artery was simultaneously harvested using endovascular harvest technique and was an excellent conduit and was prepared on the back table. Simultaneous to all of this, a midline sternotomy was performed, the left milady-sternum was retracted upwards. The left internal mammary artery was harvested on a vascularized pedicle, left intact in its origin from the subclavian and divided distally. It was an excellent conduit. Left pleural space was drained with a 32-[place] chest tube. Standard sternal retractor was placed. The pericardium was opened in the midline and the heart was exposed with pericardial sutures. The patient was systemically heparinized and ACTs were maintained greater than 250 during grafting. The 35-mm AtriCure clip was applied to the base of the left atrial appendage. The SMART was tunneled into the pericardial space. The LAD was a large vessel and it was grafted in its midportion beyond any obvious disease, was opened and blood flow control with a 2-mm flow through, it was a 2 to 2.5 mm vessel, end-to-side anastomosis between the SMART and the LAD was performed with running 8-0 Prolene suture. At completion of the anastomosis, flow through was removed effectively probing the proximal distal portion of the anastomosis. Suture was tied with good resulting hemostasis. Inflow was opened. The CLYDE pedicle was tacked running epicardium with 6-0 silk sutures. It was decided to try to utilize the radial artery for the obtuse marginal as well as both diagonals due to relative small size in much of the saphenous vein. The second diagonal coronary artery was stabilized and opened and blood flow control with a 1.5 mm flow through was 1.5 to 1.75 mm vessel. End-to-side anastomosis between the radial artery and the second diagonal branch was performed with running 7-0 Prolene suture. At completion of anastomosis, the flow through was removed effectively probing the proximal and distal portion of the anastomosis. Good back flow was noted into the radial artery, controlled with a bulldog clamp. Stabilizer was moved to the first diagonal coronary artery, which was opened, it was a 1.5 to 1.75 mm vessel. Blood flow was controlled with a 1.5 mm flow through, [id number] anastomosis between the radial artery and the first diagonal coronary artery was performed with running 7-0 Prolene suture. At completion of anastomosis, the flow through was removed effectively probing the proximal distal portion of the anastomosis. Suture was tied with good resulting hemostasis. Good backbleeding was again noted into the radial artery. Bulldog clamp was moved from distally to proximally. Proximal anastomosis of the sequential diagonal graft was taken off the SMART as it entered the pericardial space. Bulldog clamps were placed proximal and distal on the SMART. It was opened longitudinally and the proximal anastomosis constructed with running 7-0 Prolene suture. On completion of the anastomosis, inflow to all 3 vessels (LAD, 1st and 2nd diagonal) was opened and the graft was noted to lay well. The remaining portion of the radial artery was set aside and was used for the obtuse marginal. The inferior wall of the heart was exposed and the PDA was stabilized. It was a large vessel, it was opened and blood flow controlled with a 2.5-mm flow through, end-to-side anastomosis between the saphenous vein and the PDA was performed with running 7-0 Prolene suture. At completion of the anastomosis, the flow through was removed effectively probing the proximal and distal portion of anastomosis. Suture was tied with good resulting hemostasis. Good backbleeding was noted into the saphenous vein to the first valve. This most proximal portion of the saphenous vein from the thigh was of good size, but beyond the first valve, the vein became smaller. We did need to use about 3 cm of the smaller vein in order to reach the ascending aorta. Because of the small size of the vein, it was decided to use partial occlusion clamp for the proximal anastomosis. Blood pressure was controlled by Anesthesia and a partial occlusion clamp was placed on the proximal ascending aorta. A 4-mm punch hole was created and the proximal anastomosis constructed with running 6-0 Prolene suture. At completion of the anastomosis, the suture was tied. Partial occlusion clamp was removed. Good hemostasis was noted. Vein graft was de- aired and the bulldog clamp was opened allowing inflow to the PDA graft. The graft lay well with good length and no evidence of bleeding. Finally, we exposed the lateral wall of the heart. Obtuse marginal branch was a large vessel, it was stabilized and opened and blood flow control with a 2.5 mm flow through, end-to-side anastomosis between the second piece of radial artery and the obtuse marginal was performed with running 7-0 Prolene suture. On completion of the anastomosis, the flow through was removed effectively probing the proximal and distal portion of the anastomosis. Suture was tied with good resulting hemostasis. Radial graft filled well and good back flow was noted into the radial graft. Radiograph was not quite long enough to reach the ascending aorta and it was also jumped off the SMART a little proximal to where we had jumped off the diagonal graft. SMART was clamped proximally and distally with bulldog clamps, opened longitudinally and a proximal anastomosis constructed with running 7-0 Prolene suture. On completion of the proximal anastomosis, it was de-aired by back bleeding. The inflow was opened and the graft was noted to lay well. All anastomoses were hemostatic. Heparin was reversed with protamine. After assuring good hemostasis throughout, the mediastinum was drained with a 36-[place] chest tube, irrigated with antibiotic solution and the sternum closed with 8 sternal wires. Fascia was closed with 0 Ethibond. Subcutaneous and subcuticular with layers of Vicryl suture. The leg and arm incisions had likewise been closed with layers of Vicryl suture. Skin glue and dry sterile dressings were applied. The patient was transferred to the ICU in stable condition. He was on no inotropic support and received no blood transfusions. HARIS / ZAKIYA: [id number] / MTDD
[2024-03-30 08:35] LABS: HCT 29.8 % (39.0-53.0); HGB 10.3 gm/dL (13.0-17.5); MCH 30.4 pg (25.0-35.0); MCHC 34.5 g/dL (31.0-37.0); MCV 88.3 fL (80.0-100.0); Mean Platelet Volume 7.3; Platelet Count 114 k/uL (150-450); RBC 3.38 m/uL (4.30-5.90); RDW 13.1 % (11.5-15.5); WBC 7.5 k/uL (3.8-10.6)
[2024-03-30 08:36] LABS: Basophils % (A) 0 %; Eosinophils % (A) 0 %; Lymphocytes # (A) 0.5 k/uL (1.0-4.8); Lymphocytes % (A) 6 %; Monocytes # (A) 0.4 k/uL (0-1.0); Monocytes % (A) 6 %; Neutrophils # (A) 6.6 k/uL (1.3-7.7); Neutrophils % (A) 87 %
--- NOTE | 2024-04-12 21:53 | XR ---
EXAMINATION TYPE: XR chest 2V DATE OF EXAM: 03/11/2024 COMPARISON: Chest radiographs from 03/07/2024 TECHNIQUE: XR chest 2V Frontal and lateral views of the chest. CLINICAL INDICATION:Male, 73 years old with history of POST OPEN HEART; FINDINGS: Lungs/Pleura: No pneumothorax or focal consolidation. Blunting of the right costophrenic angle. Pulmonary vascularity: Unremarkable. Heart/mediastinum: Cardiomediastinal silhouette is unremarkable. Postoperative changes are present i n the mediastinum. Left atrial appendage occlusion devices present. Musculoskeletal: No acute osseous pathology. Midline sternotomy wires are noted and stable. Right sharlene ulder arthroplasty changes. IMPRESSION: Trace right pleural effusion status post open heart surgery.
--- NOTE | 2024-04-12 21:54 | XR ---
Patient Bhupinder Thompson ID [id number] Order # EXAMINATION TYPE: XR chest 1V DATE OF EXAM: 03/20/2024 COMPARISON: No comparison available on downtime PACS. INDICATION: Post open heart surgery TECHNIQUE: Single frontal view of the chest is obtained. FINDINGS: The heart size is normal. The pulmonary vasculature is normal. Linear opacities in the right mid lung compatible with atelectasis. Minimal left lung infiltrate may be present. Correlate for atelectasis. There is a left-sided chest tube. Thorax is evident. Mediastinal tube is present. [place]-David catheter is present with the tip in the midline. Correlate with waveforms. Endotracheal tube tip is above. Dimitri ogastric tube is present, distal tip is not clearly identified. Mediastinal tube is present. IMPRESSION: 1. Linear atelectasis right midlung. Mild atelectasis may be in the periphery of the left lung. 2. Multiple lines and catheters discussed above.
--- NOTE | 2024-04-12 21:54 | XR ---
EXAMINATION TYPE: XR chest 1V DATE OF EXAM: 03/08/2024 COMPARISON: Chest radiographs from 03/07/2024 TECHNIQUE: XR chest 1V Frontal view of the chest. CLINICAL INDICATION:Male, 73 years old with history of POST OP CABG; FINDINGS: Lungs/Pleura: No sizable pneumothorax. Blunting of the left costophrenic angle. Left mid and lower angelina ng airspace opacities. Right lower lung linear atelectasis. Pulmonary vascularity: Mild pulmonary vascular congestion. Heart/mediastinum: Cardiomediastinal silhouette is enlarged and stable. Postoperative changes are pr esent in the mediastinum. Left atrial appendage occlusion devices present. Musculoskeletal: No acute osseous pathology. Midline sternotomy wires are noted and stable. Other findings: None Lines/Tubes: [place]-David catheter in stable position. Left thoracotomy tube in stable position. IMPRESSION: 1. Stable postoperative changes with left thoracotomy tube is still positioned. No sizable pneumotho rax. Mid and left lower lung airspace opacities which probably represent atelectasis and effusion wit h right lower lung linear atelectasis. 2. Mild pulmonary vascular congestion.
--- NOTE | 2024-04-18 10:43 | XR ---
EXAMINATION TYPE: XR chest 1V DATE OF EXAM: 04/18/2024 10:26 AM CLINICAL INDICATION: Male, 73 years old with history of FOLLOW UP; COMPARISON: Chest radiographs from 03/08/2024 TECHNIQUE: XR chest 1V Frontal view of the chest. FINDINGS: Lungs/Pleura: Blunting of the left costophrenic angle. There is no evidence of right pleural effusion , focal consolidation, or pneumothorax. Pulmonary vascularity: Unremarkable. Heart/mediastinum: Cardiomediastinal silhouette is unremarkable. Left atrial appendage occlusion marly ce is present. Musculoskeletal: No acute osseous pathology. Midline sternotomy wires are noted. Other findings: None Lines/Tubes: Left thoracotomy tube is present without evidence of pneumothorax. There is a [place]-David catheter sheath in place. IMPRESSION: Left thoracotomy tube without evidence for pneumothorax. Mediastinal drainage tube without evidence for pneumomediastinum. Small left pleural effusion. [facility], , 04/18/2024 10:40 AM
== END 2024-03-11 17:06 | disposition home or self-care (01) | DRG 236 ==
LOC: 2ORMAIN 05:38 → UNDODISIN 03-10 14:30
PROVIDERS: ADMIT Thoracic Surgery (Cardiothoracic Vascular Surgery); ATTEND Thoracic Surgery (Cardiothoracic Vascular Surgery)
PROC: 05BA4ZZ Excision of Left Brachial Vein, Percutaneous Endoscopic Approach (ICD-10-PCS; 2024-03-07)
PROC: 0JH63VZ Insertion of Infusion Pump into Chest Subcutaneous Tissue and Fascia, Percutaneous Approach (ICD-10-PCS; 2024-03-07)
PROC: 02L70ZK Occlusion of Left Atrial Appendage, Open Approach (ICD-10-PCS; 2024-03-07)
PROC: 5A1221Z Performance of Cardiac Output, Continuous (ICD-10-PCS; 2024-03-07)
PROC: B246ZZ4 Ultrasonography of Right and Left Heart, Transesophageal (ICD-10-PCS; 2024-03-07)
PROC: 02100Z9 Bypass Coronary Artery, One Artery from Left Internal Mammary, Open Approach (ICD-10-PCS; principal; 2024-03-07 08:00)
PROC: 02110AW Bypass Coronary Artery, Two Arteries from Aorta with Autologous Arterial Tissue, Open Approach (ICD-10-PCS; 2024-03-07 08:00)
PROC: 021109W Bypass Coronary Artery, Two Arteries from Aorta with Autologous Venous Tissue, Open Approach (ICD-10-PCS; 2024-03-07 08:00)
PROC: 06BQ4ZZ Excision of Left Saphenous Vein, Percutaneous Endoscopic Approach (ICD-10-PCS; 2024-03-07 08:00)
DX: I25.10 Atherosclerotic heart disease of native coronary artery without angina pectoris (principal); I47.20 Ventricular tachycardia, unspecified; R55 Syncope and collapse; E78.5 Hyperlipidemia, unspecified; M19.90 Unspecified osteoarthritis, unspecified site; Z85.07 Personal history of malignant neoplasm of pancreas; J45.909 Unspecified asthma, uncomplicated; E06.3 Autoimmune thyroiditis; I10 Essential (primary) hypertension; Z85.46 Personal history of malignant neoplasm of prostate; Z87.01 Personal history of pneumonia (recurrent); Z96.611 Presence of right artificial shoulder joint; Z87.19 Personal history of other diseases of the digestive system; Z96.643 Presence of artificial hip joint, bilateral
CPT/HCPCS: 36600; 71045; 71046; 80048; 80053; 82330; 83735; 85025; 85520; 85610; 85730; 86850; 86891; 86900; 86901; 86920; 94002; 94003; 94150; 94640

== ENCOUNTER → 2024-03-14 | Outpatient (CLI) | payer MEDICARE, OTHER | END | disposition home or self-care (01) | LOC: LABPRL 12:34 | PROVIDERS: ATTEND Nurse Practitioner Family | DX: Z48.812 Encounter for surgical aftercare following surgery on the circulatory system (principal); I25.10 Atherosclerotic heart disease of native coronary artery without angina pectoris | CPT/HCPCS: 80053; 85027 ==

== ENCOUNTER → 2024-06-04 | Outpatient (CLI) | payer MEDICARE, OTHER ==
[2024-06-05 08:08] LABS: ALT 38 U/L (10-49); AST 35 U/L (14-35); Chol/HDL Ratio 2.54 Ratio; LDL Cholesterol,Calculated 76.3 mg/dL (0.0-131.0)
== END | disposition home or self-care (01) ==
LOC: LABWHC1 11:58
PROVIDERS: ATTEND Psychiatry & Neurology Neurology
DX: G62.9 Polyneuropathy, unspecified (principal); R55 Syncope and collapse; Z79.899 Other long term (current) drug therapy
CPT/HCPCS: 36415; 80061; 82607; 83036; 84450; 84460

== ENCOUNTER → 2024-09-30 | Outpatient (CLI) | payer MEDICARE, OTHER ==
[2024-09-30 16:53] LABS: ALT 30 U/L (10-49); AST 35 U/L (14-35); Chol/HDL Ratio 4.68 Ratio; VLDL Calculation 19.78 mg/dL (5.00-40.00)
== END | disposition home or self-care (01) ==
LOC: LABWHC1 12:18
PROVIDERS: ATTEND Internal Medicine Interventional Cardiology
DX: E78.2 Mixed hyperlipidemia (principal)
CPT/HCPCS: 36415; 80061; 84450; 84460